=== PATIENT | male | born 1940 | race Caucasian/White ===

== ENCOUNTER 2021-10-11 21:24 | Emergency (ER) | payer OTHER, MEDICARE, SELFPAY ==
[2021-10-11 21:50] VITALS: BP 185/84; PULSE 110; RESP 18; TEMP 36.4; O2SAT 97
[2021-10-11 22:05] LABS: Glucose Point of Care 269 mg/dL (70-110)
[2021-10-11] MEDS: TRAMadol 50 mg Tablet PO ×2 (22:06→22:12)
--- NOTE | 2021-10-11 22:08 | ED_ITS ---
HPI - General Adult General: Chief complaint: General Medical Stated complaint: general medical Time Seen by Provider: 10/11/21 21:34 Source: patient Mode of arrival: ambulatory Limitations: no limitations History of Present Illness: 80-year-old male states that he left his prescriptions in a motel he states [place] and did not notice it till this evening. He states he is mainly concerned because he has not had his tramadol all day and feels like he may be going into withdrawals from not having his tramadol. He states he takes 100 mg twice daily. He states he also went to have a sugar checks he is not taking his insulin he denies any other complaints at this time. Associated symptoms: Deny chest pain, dyspnea, headache(s), nausea, rash or vomiting Review of Systems Const: Denies: fever(s), chills, body aches or change in appetite Eyes: Denies: blurry vision or eye discomfort ENMT: Denies: throat pain or dental pain Card: Denies: chest pain Resp: Denies: dyspnea GI: Denies: abdominal pain, nausea, vomiting or diarrhea : Denies: dysuria Musc: Denies: neck pain or back pain Skin/Breast: Denies: rash Neuro: Denies: headache(s) Psych: Denies: depression [place]/Lymph: Denies: easy bruising All/Imm: Denies: urticaria PFSH ED PFSH: Medical History (Updated 10/11/21 @ 22:18 by Maria Luisa Vang MD) Diabetes Social History (Updated 10/11/21 @ 22:18 by Maria Luisa Vang MD) Substance/Drug Use: unknown Physical Exam Const: COMMON NORMALS: no acute distress, patient oriented x3 and healthy appearing HENMT: COMMON NORMALS: normocephalic and atraumatic HEAD & SCALP: normocephalic and atraumatic Eye: COMMON NORMALS: Equal, round and reactive pupils present and EOMs intact bilaterally PUPIL: Yes Equal, round and reactive pupils present Neck/C-Spine: COMMON NORMALS: full ROM and supple Chest: COMMONS NORMALS: normal inspection of the chest and normal palpation of entire chest wall Resp: COMMON NORMALS: normal respiratory effort, No retractions, No use of accessory muscles and clear to auscultation bilaterally AUSCULTATION: clear to auscultation bilaterally Cardio: COMMON NORMALS: regular rate, regular rhythm and No murmurs present (Cardio) RATE: regular rate RHYTHM: regular rhythm GI: COMMON NORMALS: Normal to inspection, nondistended, normoactive bowel sounds present, Soft to palpation, non-tender and no masses PALPATION: Yes Soft to palpation Extremity: COMMON NORMALS: normal to inspection and full ROM Neuro: COMMON NORMALS: patient oriented x3, moves all extremities and no focal motor deficits Psych: COMMON NORMALS: mental status grossly normal, Normal thought process present and cooperative THOUGHT PROCESS: Normal thought process present Skin: COMMON NORMALS: no rashes or lesions noted and no wounds GENERAL SKIN EXAM: no rashes or lesions noted Course Vital Signs: Vital signs: Vital Signs Temperature 97.6 F 10/11/21 21:50 Pulse Rate 110 H 10/11/21 21:50 Respiratory Rate 18 10/11/21 21:50 Blood Pressure 185/84 10/11/21 21:50 Pulse Oximetry 97 10/11/21 21:50 MDM - General Adult Medical Decision Making Patient presents here due to running out of his insulin and tramadol. He states that he needs his dose of tramadol here as he feels like he may go into withdrawals. He is well-appearing here his glucose is normal [facility] a [facility] did give him 1 dose of tramadol here he is stable for discharge she is to follow-up tomorrow return if worsening Lab Data Laboratory Results POC Glucose 269 mg/dL (70-110) H 10/11/21 22:02 Discharge Plan Discharge Patient Disposition: Home Clinical Impression: Medication refill Condition: Stable Discharge Orders: Discharge ED (Routine); Ordered 10/11/21 Ordered By: Maria Luisa Vang Discharge Diet: Advance as tolerated Discharge Activity: Resume usual activity Patient Instructions: Medicine Refill (ED) Coding Level of Care Code ED Senior Lead Project Manager for Hilda Deal
[2021-10-11 22:50] VITALS: BP 164/86; PULSE 92; RESP 18; O2SAT 97
== END 2021-10-11 22:51 | disposition home or self-care (01) ==
PROVIDERS: Emergency Provider Emergency Medicine
DX: Z76.0 Encounter for issue of repeat prescription (principal); E11.9 Type 2 diabetes mellitus without complications
CPT/HCPCS: 36416; 82962; 99283